=== PATIENT | female | born 1995 | race Caucasian/White ===

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

== ENCOUNTER 2017-01-19 04:15 | Emergency (ER) | payer OTHER ==
[~2017-01-19] VITALS: Ht 175.3 cm; Wt 93.2 kg
[2017-01-19 04:20] VITALS: BP 118/83
[2017-01-19 05:33] LABS: ADD MIUA? NO; BILIRUBIN NEGATIVE; BLOOD NEGATIVE; COLOR YELLOW ((YELLOW)); GLUCOSE (STRIP) NEGATIVE; KETONES NEGATIVE; LEUKOCYTES NEGATIVE; NITRITE NEGATIVE; PROTEIN (STRIP) NEGATIVE; SPECIFIC GRAVITY 1.004 (1.000-1.030); UCUL ADDED? NO; UROBILINOGEN 0.2 MG/DL (0.2-1.0)
[2017-01-19 05:36] LABS: CHLORIDE 103 mEq/L (99-109); POTASSIUM 3.7 mEq/L (3.7-5.4); SODIUM 137 mEq/L (136-147)
[2017-01-19 05:37] LABS: GLUCOSE 89 mg/dL (70-99)
[2017-01-19 05:39] LABS: ANION GAP 12 MEQ/L (2-14)
[2017-01-19 05:41] LABS: GFR ESTIMATE (CALCULATED) > 59 mL/min/; SERUM ETHYL ALCOHOL 90 mg/dL
[2017-01-19 05:42] LABS: UREA NITROGEN (BUN) 8 mg/dL (9-23)
[2017-01-19 05:53] LABS: HEMATOCRIT 38.2 % (36.0-46.0); MCH 28.2 PG (29.0-34.0); MCHC 33.8 G/DL (30.0-36.0); MCV 83.4 FL (83-99); MEAN PLAT.VOLUME 11.7 uM^3 (9.5-12.4); PLATELET COUNT 195 K/uL (156-360); RBC DIS.WIDTH-CV 13.2 % (11.8-14.6); RBC DIS.WIDTH-SD 39.6 % (39-53); RED BLOOD COUNT 4.58 M/uL (3.80-5.20); WHITE BLOOD COUNT 5.9 K/uL (4.1-10.2)
[2017-01-19 06:04] LABS: QUANTITATIVE HCG < 4.0 MIU/ML
[2017-01-19 13:15] LABS: CHLAMYDIA TRACHOMATIS NEGATIVE; NEISSERIA GONORRHOEAE NEGATIVE
[2017-01-19 16:44] LABS: TREPONEMA ANTIBODY NEGATIVE (NEGATIVE)
== END 2017-01-19 09:00 | disposition home or self-care (01) ==
LOC: EME 04:15
PROVIDERS: Emergency Medicine
DX: T76.21XA Adult sexual abuse, suspected, initial encounter (principal); S40.811A Abrasion of right upper arm, initial encounter; S40.812A Abrasion of left upper arm, initial encounter; Y07.11 Biological father, perpetrator of maltreatment and neglect; F10.129 Alcohol abuse with intoxication, unspecified; F84.5 Asperger's syndrome; K21.9 Gastro-esophageal reflux disease without esophagitis
CPT/HCPCS: 80048; 81003; 84702; 85027; 86780; 87210; 87491; 87591; 99281; 99285; G0480